=== PATIENT | female | born 1950 ===

== ENCOUNTER 2016-12-03 09:35 | Outpatient (CLI) | payer OTHER ==
--- NOTE | 2016-12-03 10:05 | XRay Report ---
LEFT KNEE: History: Knee pain. The bony architecture is intact without evidence of fracture or dislocation. No significant soft tissue abnormality is seen. IMPRESSION: Normal left knee.
== END 2016-12-03 09:36 | disposition home or self-care (01) ==
LOC: SPVIMAG 09:35
PROVIDERS: ATTEND Orthopaedic Surgery
DX: M25.562 Pain in left knee (principal)